=== PATIENT | male | born 1965 | race Caucasian/White ===

== ENCOUNTER 2020-04-01 16:23 | Outpatient (CLI) | payer OTHER | END 2020-04-01 16:24 | disposition home or self-care (01) | LOC: CTENTCT 16:23 | PROVIDERS: ATTEND Specialist | DX: J32.9 Chronic sinusitis, unspecified (principal) | CPT/HCPCS: 70486 ==

== ENCOUNTER 2021-05-23 09:11 | Outpatient (CLI) | payer BC ==
[2021-05-24 00:45] LABS: SARS-CoV-2 PCR by NAA Not Detected (NotDetected)
== END 2021-05-23 09:12 | disposition home or self-care (01) ==
LOC: LABBT 09:11
PROVIDERS: ATTEND Specialist
DX: Z01.818 Encounter for other preprocedural examination (principal); J35.1 Hypertrophy of tonsils; J35.01 Chronic tonsillitis; J34.2 Deviated nasal septum; J34.3 Hypertrophy of nasal turbinates; R09.81 Nasal congestion; Z20.822 Contact with and (suspected) exposure to COVID-19
CPT/HCPCS: 93005; 93010; U0003; U0005

== ENCOUNTER 2021-05-25 11:32 | Day surgery (SDC) | payer BC ==
[2021-05-22 14:00] VITALS: BMI 28.3
[2021-05-25] MEDS ORDERED: AFRIN NASAL MIST 15 ML BOT ONE ×2 (12:34→13:41)
[2021-05-25] MEDS ORDERED: Lidocaine 1% w/Epinephrine 1:100K 20 ML VIAL ONE (12:34)
[2021-05-25] MEDS ORDERED: Bacitracin Zinc Ointment 30 gm TUBE ONE (12:34)
[2021-05-25] MEDS ORDERED: Fentanyl 100 MCG/2 ML VIAL ONE ×3 (13:14→15:37)
[2021-05-25] MEDS ORDERED: PROPOFOL 20 ML ONE (13:28)
[2021-05-25] MEDS ORDERED: Lidocaine 1% PF 5 ML VIAL ONE (13:51)
[2021-05-25] MEDS ORDERED: ePHEDrine 50 MG/ML VIAL ONE (13:51)
[2021-05-25] MEDS ORDERED: PROPOFOL 200 MG/20 ML VIAL ONE (13:51)
[2021-05-25] MEDS ORDERED: Rocuronium Bromide 10 MG/ML (10ML VIAL) ONE (13:51)
[2021-05-25] MEDS ORDERED: Glycopyrrolate 0.2 MG/ML 5 ML SYRINGE ONE (13:51)
[2021-05-25] MEDS ORDERED: Ondansetron PF 4 MG/2 ML Vial ONE (13:51)
[2021-05-25] MEDS ORDERED: Dexamethasone 20 MG/5 ML VIAL ONE (13:51)
[2021-05-25] MEDS ORDERED: SUGAMMADEX SODIUM 200 MG/2 ML VIAL ONE (14:46)
[2021-05-25] MEDS ORDERED: HYDROcodone/Acetaminophen 5/325 mg Tablet ONE (16:39)
[2021-05-25] MEDS ORDERED: hydrALAZINE 20 MG/ML VIAL ONE (17:35)
== END 2021-05-25 18:35 | disposition home or self-care (01) ==
LOC: SDC 11:32
PROVIDERS: ATTEND Specialist
PROC: 0CTNXZZ Resection of Uvula, External Approach (ICD-10-PCS; principal; 2021-05-25)
PROC: 09TL8ZZ Resection of Nasal Turbinate, Via Natural or Artificial Opening Endoscopic (ICD-10-PCS; principal; 2021-05-25)
PROC: 09SM0ZZ Reposition Nasal Septum, Open Approach (ICD-10-PCS; principal; 2021-05-25)
PROC: 0CTPXZZ Resection of Tonsils, External Approach (ICD-10-PCS; principal; 2021-05-25)
DX: J34.2 Deviated nasal septum (principal); J34.3 Hypertrophy of nasal turbinates; J35.01 Chronic tonsillitis; K13.79 Other lesions of oral mucosa; J30.9 Allergic rhinitis, unspecified; E78.00 Pure hypercholesterolemia, unspecified; I10 Essential (primary) hypertension; Z79.899 Other long term (current) drug therapy; Z88.0 Allergy status to penicillin
CPT/HCPCS: 88304; J0360; J1100; J2405; J2704; J3010; J3490